=== PATIENT | female | born 1965 | race Caucasian/White ===

== ENCOUNTER 2016-07-05 00:44 | Emergency (ER) | payer SELFPAY ==
[~2016-07-05] VITALS: Ht 162.6 cm; Wt 51.5 kg
[~2016-07-05 00:44] MED LIST: IBUP-1542 PO; OFLO5DRO46 LEFT EYE
[2016-07-05 01:00] VITALS: Ht 162.6 cm; Wt 51.5 kg
== END 2016-07-05 02:35 | disposition left against medical advice (07) ==
LOC: FTE 00:44
DX: Z53.21 Procedure and treatment not carried out due to patient leaving prior to being seen by health care provider (principal)

== ENCOUNTER 2016-12-25 01:44 | Emergency (ER) | payer SELFPAY ==
[~2016-12-25] VITALS: Ht 152.4 cm; Wt 53.0 kg
[2016-12-25 01:53] VITALS: Ht 152.4 cm; Wt 53.0 kg
[2016-12-25] MEDS ORDERED: SODIUM CHLORIDE 0.9% 1L BAG IV* STA (02:34)
[2016-12-25] MEDS ORDERED: ACETAMINOPHEN 325 MG TAB PO STA (02:34)
[2016-12-25] MEDS ORDERED: CEFTRIAXONE 1 GM/50 ML (PMX) 50 ML IVPB STA (02:34)
[2016-12-25 02:54] LABS: HEMATOCRIT 36.9 % (37.0-47.0); HEMOGLOBIN 12.5 g/dl (12.0-16.0); MEAN CORPUSCULAR HEMOGLOBIN 30.6 pg (29.0-33.0); MEAN CORPUSCULAR HGB CONC 33.9 g/dl (32.0-37.0); MEAN CORPUSCULAR VOLUME 90.2 fl (82.0-101.0); MEAN PLATELET VOLUME 10.1 fl (7.4-10.4); PLATELET COUNT 278 10^3/UL (140-415); RED BLOOD COUNT 4.09 10^6/ul (4.20-5.40); RED CELL DISTRIBUTION WIDTH 12.7 % (11.5-14.5); WHITE BLOOD COUNT 4.5 10^3/ul (4.8-10.8)
[2016-12-25 02:58] LABS: POSITIVE DIFF @See below
--- NOTE | 2016-12-25 03:08 | RADRPT ---
PROCEDURE: XR Chest. CLINICAL INDICATION: Sepsis TECHNIQUE: Portable single view of the chest COMPARISON: None. FINDINGS: The heart size is top normal. No acute infiltrate, pleural effusion, or overt congestive heart fail ure is seen. Small probable calcified left lung base granulomas. Old right rib fracture. Slight p robable bibasilar scarring. IMPRESSION: Probable prior granulomatous disease. No definite acute disease. RPTAT: HLBE Raquel Taveras, Physician Date Time Electronically viewed and signed by Raquel Taveras, Physician on 12/25/2016 03:08 LE/
[2016-12-25 03:16] LABS: ALANINE AMINOTRANSFERASE 138 IU/L (13-69); ALBUMIN 3.9 g/dl (3.3-4.9); ALBUMIN/GLOBULIN RATIO 1.18; ALKALINE PHOSPHATASE 209 IU/L (42-121); ANION GAP 17 (8-16); ASPARTATE AMINO TRANSFERASE 83 IU/L (15-46); BILIRUBIN,INDIRECT 0.1 mg/dl (0-1.1); BILIRUBIN,TOTAL 0.1 mg/dl (0.2-1.3); BLOOD UREA NITROGEN 14 mg/dl (7-20); CALCIUM 9.3 mg/dl (8.4-10.2); CARBON DIOXIDE 31 mmol/L (21-31); CHLORIDE 100 mmol/L (97-110); CREATININE 0.76 mg/dl (0.44-1.00); GLUCOSE 104 mg/dl (70-220); POTASSIUM 4.1 mmol/L (3.5-5.1); SODIUM 144 mmol/L (135-144); TOTAL PROTEIN 7.2 g/dl (6.1-8.1)
[2016-12-25 03:34] LABS: INR 1.02; PARTIAL THROMBOPLASTIN TIME 36.5 Sec (25.0-35.0); PROTIME 13.4 Sec (12.2-14.2)
[2016-12-25 03:47] LABS: TROPONIN-I < 0.012 ng/ml (0.00-0.12)
[2016-12-25 03:51] LABS: ADD UMIC YES; UR ASCORBIC ACID NEGATIVE (NEGATIVE); UR BILIRUBIN (Dip) NEGATIVE (NEGATIVE); UR BLOOD (Dip) NEGATIVE (NEGATIVE); UR CLARITY SLIGHTLY CLOUDY (CLEAR); UR COLOR YELLOW (YELLOW); UR GLUCOSE (Dip) NEGATIVE (NEGATIVE); UR KETONES (Dip) NEGATIVE (NEGATIVE); UR LEUKOCYTE ESTERASE (Dip) NEGATIVE Leu/ul (NEGATIVE); UR MUCUS FEW /HPF (NONE SEEN); UR NITRITE (Dip) NEGATIVE (NEGATIVE); UR RBC 1 /HPF (0-5); UR SPECIFIC GRAVITY (Dip) 1.024 (1.003-1.030); UR TOTAL PROTEIN (Dip) 1+ mg/dl (NEGATIVE); UR UROBILINOGEN (Dip) 1+ mg/dL (NEGATIVE)
[2016-12-25 04:20] LABS: EOSINOPHILS % (M) 5 % (0-7); GIANT THROMBO% (M) 6 % (0-0); MONOCYTES % (M) 10 % (0-11); PLATELET ESTIMATE NORMAL
--- NOTE | 2016-12-25 04:59 | RADRPT ---
PROCEDURE: CT Abdomen and pelvis without contrast. CLINICAL INDICATION: Abdominal pain. TECHNIQUE: CT scan of the abdomen and pelvis was performed on a multi-detector high-resolution CT scanner. Contiguous axial images were obtained from the lung bases to the ischial tuberosities wit hout intravenous contrast. Coronal and sagittal reformatted images were also obtained. Images were reviewed on the PACS workstation. One or more of the following dose reduction techniques were used: - Automated exposure control. - Adjustment of the mA and/or kV according to patient size. - Use of iterative reconstruction technique. Exam CTD/vol = 5.64 mGy. Total exam DLP = 292.90 mGy-cm. COMPARISON: None. FINDINGS: Evaluation of the lung bases demonstrates mild bibasilar atelectasis and trace left pleural effusion . There is a calcified granuloma within the left lower lobe. There is a small pericardial effusion . Abdomen: The liver is increased in size. There is no focal mass or dilatation of the biliary tree. The gallbladder is not distended. The spleen, pancreas and bilateral adrenal glands are within no rmal limits. Bilateral kidneys are normal in size with no contour deforming mass identified. There is no radiopaque renal or ureteral calculus identified. There is no hydronephrosis or hydroureter. There is no retroperitoneal adenopathy. The abdominal aorta is of normal caliber. There is a small umbilical hernia containing fat. There is no bowel obstruction or free air. A nor mal appendix is identified. There are scattered colonic diverticuli without evidence of diverticuli tis. There is no ascites. Pelvis: The bladder is unremarkable. The uterus is absent. There is a large left inguinal hernia measuring 2.4 x 1.7 cm. There is no significant pelvic free fluid. Evaluation of the osseous structures demonstrates no suspicious lytic or blastic lesion. IMPRESSION: Scattered colonic diverticuli without evidence of diverticulitis. Mild hepatomegaly. Mild bibasilar atelectasis and trace left pleural effusion. Small pericardial effusion. Small umbilical hernia containing fat. Enlarged left inguinal lymph node measuring 2.4 x 1.7 cm. Otherwise no acute abnormality identified within the abdomen and pelvis. .Celestino Alonzo MD, Date Time Electronically viewed and signed by .Celestino Alonzo MD, MD on 12/25/2016 04:59 .T/
[2016-12-25] MEDS ORDERED: ACET325T33 PO (05:06)
[2016-12-25] MEDS ORDERED: IBUP-1542 PO (05:06)
--- NOTE | 2016-12-25 05:08 | ERD ---
ER Documentation Chief Complaint Date/Time DATE: 12/25/16 TIME: 05:07 Chief Complaint nonradiating chest sharp pain,bilat pelvic pain,fever HPI Patient is a 51-year-old female with hypertension who presents with chest pain. She has had chest pain and fevers for the past few days. She now has lymph nodes in her groin which are inflamed. She denies cough. She denies urinary symptoms. Upon review of old medical records this is the patient's third visit to the ER since 2016. She does not know the name of her primary doctor. ROS All systems reviewed and are negative except as per history of present illness. Medications Home Meds Active Scripts Acetaminophen* (Tylenol*) 325 Mg Tablet, 2 TAB PO Q8 Y for PAIN AND OR ELEVATED TEMP, #20 TAB Prov:ELAINE LUI MD 12/25/16 Ibuprofen* (Motrin*) 600 Mg Tab, 600 MG PO Q8, #30 TAB Prov:ELAINE LUI MD 12/25/16 Ibuprofen* (Ibuprofen*) 600 Mg Tablet, 600 MG PO Q6, #14 TAB Prov:MANJIT LOTT MD 02/15/16 Ofloxacin* (Ocuflox*) 0.3%-5 Ml Ophth Drops, 1 DROP LEFT EYE QID for 7 Days, BOTTLE Prov:MANJIT LOTT MD 02/15/16 Allergies Allergies: Coded Allergies: No Known Allergy (Unverified , 02/15/16) PMhx/Soc History of Surgery: Yes (partial hysterectomy, c section) Hx Alcohol Use: No Hx Substance Use: No Hx Tobacco Use: No Smoking Status: Never smoker FmHx Family History: No diabetes Physical Exam Vitals Vital Signs Date Time Temp Pulse Resp B/P Pulse Ox O2 Delivery O2 Flow Rate FiO2 12/25/16 04:00 95 18 118/80 94 Room Air 12/25/16 03:00 93 17 112/88 95 Room Air 12/25/16 01:53 100.8 104 18 150/72 98 Physical Exam Const: No acute distress Head: Atraumatic Eyes: Normal Conjunctiva ENT: Normal External Ears, Nose and Mouth. Neck: Full range of motion..~ No meningismus. Resp: Clear to auscultation bilaterally Cardio: Regular rate and rhythm, no murmurs Abd: Soft, non tender, non distended. Normal bowel sounds, left inguinal lymph node inflammation Skin: No petechiae or rashes Back: No midline or flank tenderness Ext: No cyanosis, or edema Neur: Awake and alert Psych: Normal Mood and Affect Result Diagram: 12/25/16 0245 12/25/16 0245 Results 24 hrs Laboratory Tests Test 12/25/16 02:45 12/25/16 03:10 White Blood Count 4.510^3/ul Red Blood Count 4.0910^6/ul Hemoglobin 12.5g/dl Hematocrit 36.9% Mean Corpuscular Volume 90.2fl Mean Corpuscular Hemoglobin 30.6pg Mean Corpuscular Hemoglobin Concent 33.9g/dl Red Cell Distribution Width 12.7% Platelet Count 19025^3/UL Mean Platelet Volume 10.1fl Neutrophils % % Segmented Neutrophils % (Manual) 65% Lymphocytes % % Lymphocytes % (Manual) 20% Monocytes % % Monocytes % (Manual) 10% Eosinophils % % Eosinophils % (Manual) 5% Basophils % % Nucleated Red Blood Cells % 0.0/100WBC Neutrophils # 10^3/ul Absolute Lymphocytes (Manual) 0.910^3/ul Lymphocytes # 10^3/ul Monocytes # 10^3/ul Absolute Monocytes (Manual) 0.410^3/ul Eosinophils # 10^3/ul Basophils # 10^3/ul Nucleated Red Blood Cells # 10^3/ul Smudge Cells % 2% Thrombocytosis 6% Platelet Estimate NORMAL Prothrombin Time 13.4Sec Prothrombin Time Ratio 1.0 INR International Normalized Ratio 1.02 Activated Partial Thromboplast Time 36.5Sec Sodium Level 144mmol/L Potassium Level 4.1mmol/L Chloride Level 100mmol/L Carbon Dioxide Level 31mmol/L Anion Gap 17 Blood Urea Nitrogen 14mg/dl Creatinine 0.76mg/dl Glucose Level 104mg/dl Lactic Acid Level 1.1mmol/L Calcium Level 9.3mg/dl Total Bilirubin 0.1mg/dl Direct Bilirubin 0.00mg/dl Indirect Bilirubin 0.1mg/dl Aspartate Amino Transf (AST/SGOT) 83IU/L Alanine Aminotransferase (ALT/SGPT) 138IU/L Alkaline Phosphatase 209IU/L Troponin I < 0.012ng/ml Total Protein 7.2g/dl Albumin 3.9g/dl Globulin 3.30g/dl Albumin/Globulin Ratio 1.18 Urine Color YELLOW Urine Clarity SLIGHTLY CLOUDY Urine pH 6.0 Urine Specific [place] 1.024 Urine Ketones NEGATIVEmg/dL Urine Nitrite NEGATIVEmg/dL Urine Bilirubin NEGATIVEmg/dL Urine Urobilinogen 1+mg/dL Urine Leukocyte Esterase NEGATIVELeu/ul Urine Microscopic RBC 1/HPF Urine Microscopic WBC 2/HPF Urine Mucus FEW/HPF Urine Hemoglobin NEGATIVEmg/dL Urine Glucose NEGATIVEmg/dL Urine Total Protein 1+mg/dl Current Medications Medications (Trade) Dose Ordered Sig/Eleno Route PRN Reason Start Time Stop Time Status Last Admin Dose Admin Sodium Chloride (NS) 1,640 ml BOLUS OVER 2 HOURS STAT IV* 12/25/16 02:34 12/25/16 02:37 DC 12/25/16 03:00 Acetaminophen 650 mg 650 mg ONCE STAT PO 12/25/16 02:34 12/25/16 02:38 DC 12/25/16 02:59 Ceftriaxone Sodium (Rocephin) 50 ml @ 100 mls/hr ONCE STAT IVPB 12/25/16 02:34 12/25/16 03:03 DC 12/25/16 03:01 Procedures/MDM EKG read by me: Rate/Rhythm: Regular rate and rhythm at a rate of 91 Intervals: Normal Impression: No evidence of ischemia or arrhythmia Chest x-ray shows no pneumonia or pneumothorax per radiology. CT abdomen pelvis shows no acute surgical process per radiology. Smoking Cessation Therapy: Pt. was lectured for greater than 3 minutes on the health risks of continued smoking and the benefits of cessation. Patient is a 51-year-old female with hypertension who presents with chest pain and fever. She had a full septic workup which was basically normal. There was no sign of pneumonia or cystitis. There was no sign of surgical process on her CT scan of the abdomen and pelvis. She feels better after treatment with Tylenol. The patient will be discharged home with prescription for Tylenol and Motrin. I doubt acute coronary syndrome, pneumonia, pneumothorax, pulmonary embolism, or aortic dissection. I doubt sepsis or other serious bacterial infection. I would not give her antibiotics at this time as I do believe this is likely a viral illness. However the patient will need close follow-up with a primary doctor within 24-48 hours and could return if symptoms worsen. Departure Diagnosis: Primary Impression: Chest pain Chest pain type: unspecified Qualified Code: R07.9 - Chest pain, unspecified type Additional Impression: Fever Fever type: unspecified Qualified Code: R50.9 - Fever, unspecified fever cause Condition: Fair Patient Instructions: Chest Pain, Uncertain Cause Referrals: Your doctor Additional Instructions: Call your primary care doctor TOMORROW for an appointment during the next 1-2 days.See the doctor sooner or return here if your condition worsens before your appointment time. ELAINE LUI MD Dec 25, 2016 05:08
[2016-12-25 05:36] VITALS: BP 116/75; PULSE 85; RESP 18; TEMP 98.6
== END 2016-12-25 05:37 | disposition home or self-care (01) ==
LOC: E/R 01:44
DX: R07.9 Chest pain, unspecified (principal); R50.9 Fever, unspecified; I10 Essential (primary) hypertension
CPT/HCPCS: 36415; 71010; 74176; 80053; 81001; 83605; 84484; 85025; 85610; 85730; 87040; 87086; 93005; 96374; 99285; J0696; J7030

== ENCOUNTER 2017-04-01 01:48 | Inpatient (IN) | payer MEDICAID ==
[~2017-04-01] VITALS: Ht 152.4 cm; Wt 52.0 kg
[2017-04-01] VITALS (8 sets, daily range): BP systolic 116–164; BP diastolic 65–91; PULSE 95–105; RESP 18–19; TEMP 99.7; Ht 152.4 cm; Wt 52.0 kg
[~2017-04-01 01:48] MED LIST changes: +ACET325T33 PO
--- NOTE | 2017-04-01 02:58 | RADRPT ---
PROCEDURE: XR Chest. CLINICAL INDICATION: Chest pain. TECHNIQUE: Single portable view of the chest was obtained . COMPARISON: None. FINDINGS: Cardiac size is identified. Symmetric smooth bordered nodular densities overlie the left fifth sixth anterior intercostal space and left anterior sixth rib and likely represent prominent breast nipple shadows . Mild degenerative changes of the bilateral shoulder joints. IMPRESSION: 1. No acute pulmonary disease. 2. Magnified cardiac size. 3. Symmetric smooth bordered nodular densities which overlie the bilateral lower lobes probably rep resenting prominent breast nipple shadows. RPTAT: HRSR Physician Bettie Date Time Electronically viewed and signed by Physician Bettie on 04/01/2017 02:58 RR/
[2017-04-01] MEDS ORDERED: IOHEXOL 100 ML ONE (04:42)
[2017-04-01] MEDS ORDERED: SOD CHLORIDE 0.9% 100 ML ONE ×2 (04:42→17:56)
--- NOTE | 2017-04-01 05:11 | RADRPT ---
PROCEDURE: CT angiogram of the chest with contrast. CLINICAL INDICATION: Chest pain. TECHNIQUE: CT angiogram of the chest was obtained using a multi-detector high-resolution CT. Con tiguous axial images were obtained during the dynamic injection of 80 cc of Omnipaque 350 intravenou s contrast. Coronal and sagittal reformatted images were obtained. 3-D reformatted images were als o obtained. Images were reviewed on a PACS workstation. One or more of the following dose reduction techniques were used: - Automated exposure control. - Adjustment of the mA and/or kV according to patient size. - Use of iterative reconstruction technique. Exam CTD/vol = 4.61 mGy. Total exam DLP = 200.09 mGy-cm. COMPARISON: None. FINDINGS: There are filling defects within the lobar, segmental and subsegmental pulmonary arteries of the lef t upper lobe. There are filling defects within the lobar to segmental pulmonary is of the right uppe r lobe. The heart is normal in size. There is a small pericardial effusion. The aorta is of puma l course and caliber without evidence of aneurysm or dissection. There is no evidence of chest wall mass. The visualized thyroid is unremarkable. There are no enla rged axillary lymph nodes. There are no enlarged mediastinal or hilar lymph nodes by CT criteria. There is mild bibasilar atelectasis. There are mild ground-glass opacities within the anterior left upper lobe. There is no parenchymal nodule or consolidation. There is no pleural effusion. The claudio tral tracheobronchial tree is within normal limits. Limited evaluation of the upper abdomen demonstrates a structure measuring 2.4 x 1.6 cm within the l eft upper abdomen posterior to the stomach.. IMPRESSION: Bilateral upper lobe pulmonary emboli. There are ground-glass opacities within the anterior left upp er lobe which could suggest pulmonary infarction. Small pericardial effusion. Mild bibasilar atelectasis. Left upper abdominal 2.4 x 1.6 cm structure could represent an adrenal adenoma, unchanged from the C T abdomen and pelvis of 12/25/2016. A call report was made to Dr. Gerardo at 05:10 a.m. .Celestino Alonzo MD, Date Time Electronically viewed and signed by .Celestino Alonzo MD, on 04/01/2017 05:11 .T/
[2017-04-01] MEDS ORDERED: ENOXAPARIN 60 MG/0.6 ML SYG SC STA (05:24)
[2017-04-01] MEDS ORDERED: ACETAMINOPHEN 325 MG TAB PO PRN (06:00)
[2017-04-01] MEDS ORDERED: ONDANSETRON 4 MG INJ IV PRN (06:00)
--- NOTE | 2017-04-01 06:27 | ERD ---
ER Documentation Chief Complaint Chief Complaint chest pain x 2 days HPI 51-year-old with no significant past medical history presenting with chest pain that is worsened over the past 2 days. She has been feeling some pain over the past week. Now she has associated shortness of breath at rest. No diaphoresis , nausea, vomiting, fever, chills. She does complain of lymph node swelling and pain in her bilateral groin area for the past several months. She denies any associated abdominal pain, dysuria, vaginal discharge, weight loss, or night sweats. She denies any recent surgeries or immobilization. No history of blood clots or cardiac disease. ROS All systems reviewed and are negative except as per history of present illness. Medications Home Meds Active Scripts Acetaminophen* (Tylenol*) 325 Mg Tablet, 2 TAB PO Q8 Y for PAIN AND OR ELEVATED TEMP, #20 TAB Prov:ELAINE LUI MD 12/25/16 Ibuprofen* (Motrin*) 600 Mg Tab, 600 MG PO Q8, #30 TAB Prov:ELAINE LUI MD 12/25/16 Ibuprofen* (Ibuprofen*) 600 Mg Tablet, 600 MG PO Q6, #14 TAB Prov:MANJIT LOTT MD 02/15/16 Ofloxacin* (Ocuflox*) 0.3%-5 Ml Ophth Drops, 1 DROP LEFT EYE QID for 7 Days, BOTTLE Prov:MANJIT LOTT MD 02/15/16 Allergies Allergies: Coded Allergies: No Known Allergy (Unverified , 04/01/17) PMhx/Soc History of Surgery: Yes (partial hysterectomy, c section) Anesthesia Reaction: No Hx Neurological Disorder: No Hx Respiratory Disorders: No Hx Cardiac Disorders: No Hx Psychiatric Problems: No Hx Miscellaneous Medical Probl: No Hx Alcohol Use: Yes (WINE ) Hx Substance Use: No Hx Tobacco Use: Yes (5 CIGS/DAY ) Smoking Status: Current every day smoker FmHx Family History: coronary disease, other (Son had Wilms tumor and blood clots) Physical Exam Vitals Vital Signs Date Time Temp Pulse Resp B/P Pulse Ox O2 Delivery O2 Flow Rate FiO2 04/01/17 06:04 99.7 93 14 166/96 96 Room Air 04/01/17 05:01 95 12 174/101 97 Room Air 04/01/17 04:04 100.2 103 15 170/98 97 Room Air 04/01/17 02:15 111 12 198/106 98 Room Air 04/01/17 01:53 98.4 118 20 216/98 98 Physical Exam Const: Well-appearing, no apparent distress Head: Atraumatic Eyes: Normal Conjunctiva ENT: Normal External Ears, Nose and Mouth. Neck: Full range of motion..~ No meningismus. Resp: Clear to auscultation bilaterally Cardio: Tachycardic with regular rhythm, no murmurs. 2+ distal pulses in all 4 extremities Abd: Soft, non tender, non distended. Normal bowel sounds. Bilateral groin area with shotty lymphadenopathy. No rashes or erythema Skin: No petechiae or rashes Back: No midline or flank tenderness Ext: No cyanosis, or edema. No calf tenderness Neur: Awake and alert Psych: Somewhat anxious but pleasant Result Diagram: 04/01/1722904/01/17229 Results 24 hrs Laboratory Tests Test 04/01/17 02:30 White Blood Count 9.710^3/ul Red Blood Count 4.3710^6/ul Hemoglobin 12.7g/dl Hematocrit 37.3% Mean Corpuscular Volume 85.4fl Mean Corpuscular Hemoglobin 29.1pg Mean Corpuscular Hemoglobin Concent 34.0g/dl Red Cell Distribution Width 13.2% Platelet Count 55916^3/UL Mean Platelet Volume 10.1fl Neutrophils % 78.2% Lymphocytes % 11.1% Monocytes % 8.8% Eosinophils % 1.2% Basophils % 0.5% Nucleated Red Blood Cells % 0.0/100WBC Neutrophils # 7.610^3/ul Lymphocytes # 1.110^3/ul Monocytes # 0.910^3/ul Eosinophils # 0.110^3/ul Basophils # 0.110^3/ul Nucleated Red Blood Cells # 0.010^3/ul Prothrombin Time 13.0Sec Prothrombin Time Ratio 1.0 INR International Normalized Ratio 0.98 Activated Partial Thromboplast Time 35.4Sec D-Dimer 1590.32ng/ml D-Dimer Comment Sodium Level 142mmol/L Potassium Level 3.7mmol/L Chloride Level 101mmol/L Carbon Dioxide Level 28mmol/L Anion Gap 17 Blood Urea Nitrogen 10mg/dl Creatinine 0.77mg/dl Glucose Level 116mg/dl Calcium Level 9.1mg/dl Troponin I < 0.012ng/ml Current Medications Medications (Trade) Dose Ordered Sig/Eleno Route PRN Reason Start Time Stop Time Status Last Admin Dose Admin IV Flush 10 ml 10 ml STK-MED ONCE .ROUTE 04/01/17 04:42 04/01/17 04:43 DC 04/01/17 04:49 Sodium Chloride 100 ml @ ud STK-MED ONCE .ROUTE 04/01/17 04:42 04/01/17 04:43 DC 04/01/17 04:49 Iohexol (Omnipaque) 100 ml @ ud STK-MED ONCE .ROUTE 04/01/17 04:42 04/01/17 04:43 DC 04/01/17 04:49 Enoxaparin Sodium (Lovenox) 60 mg ONCE STAT SC 04/01/17 05:24 04/01/17 05:25 DC 04/01/17 06:03 Ondansetron HCl (Zofran Inj) 4 mg ER BRIDGE PRN IV NAUSEA AND/OR VOMITING 04/01/17 06:00 04/02/17 05:59 Acetaminophen (Tylenol Tab) 650 mg ER BRIDGE PRN PO MILD PAIN/FEVER 04/01/17 06:00 04/02/17 05:59 Procedures/MDM EKG: Rate/Rhythm: Sinus tachycardia at 111 bpm QRS, ST, T-waves: No changes consistent w/ acute ischemia Impression: No evidence of ischemia, sinus tachycardia Chest x-ray CTPA: Labs CBC: no anemia or evidence of infection BMP: No evidence of electrolyte abnormality, renal failure, hypoglycemia Troponin within normal limits UA: pending Urine GC/Chlamydia pending MDM Patient is presenting with chest pain and shortness of breath. Vitals were notable for uncontrolled hypertension and tachycardia. There is no evidence of hypoxia. Given her tachycardia, she is PERC positive, but low risk with Wells criteria. D-dimer was ordered and was elevated. Cardiac workup was also initiated. Initial troponin was normal. EKG did not show any ischemic changes. CTPA was ordered due to elevated d-dimer, showing bilateral PEs. Etiologies of her PEs is unknown. Given her chronic lymphadenopathy, malignancy is on the differential. Lovenox was started in the ED. Patient was updated on her results and the plan. I will admit her for further diagnostic workups and stabilization. At this time she is not stable for discharge. Critical Care Time: 35 minutes Treatments/Evaluations: Close monitoring and treatment of unstable vital signs, cardiorespiratory, and neurologic status, while maintaining tight balance of fluid, respiratory, and cardiac interventions. This time includes discussing the case with the patient and the patients family. This time does not include all procedures stated elsewhere in this record. This time also includes reviewing old records, labs and radiological studies. This time includes examining and re-examining the patient. Additionally, this time also includes arranging care with admitting and consulting physicians. Accepting Care Team: Current data and ongoing care discussed. Time: Time of admission Primary Provider: Derek Outstanding Data: Urinalysis, urine GC and chlamydia Departure Diagnosis: Primary Impression: Bilateral pulmonary embolism Additional Impression: Inguinal lymphadenopathy Condition: Serious KIRA FOSTER MD Apr 01, 2017 06:27
[2017-04-01] MEDS ORDERED: LORAZEPAM 1 MG TAB PO ONE (07:30)
--- NOTE | 2017-04-01 12:57 | HP ---
Date/Time of Note Date/Time of Note DATE: 04/01/17 TIME: 12:46 Assessment/Plan VTE Prophylaxis VTE Prophylaxis Intervention: LMWH Lines/Catheters IV C[facility]ter [facility] Saline Lock Assessment/Plan Chief Complaint/Hosp Course 51 yo female with weeks of fever of unknown origin, lympadenopathy and found to have acute pulmonary embolism Presentation is concerning fo an undiagnosed malignancy vs unclear infectious process vs less likely rheumatic process - CT A/P w contrast to evaluate for malignancy - Fever workup with blood cultures, urine culture. Fever possible from PE but need to rule out other pathology - Would biopsy inguinal node - Will send SPEP - Therapeutic lovenox for PE - Start amlodipine 5 for hypertension Problems: HPI/ROS Admit Date/Time Admit Date/Time Apr 01, 2017 at 05:35 Hx of Present Illness 51 yo female without pmh who presents with with fevers and CP/dyspnea. Patient has had fevers to 103 over past few weeks. Minimal localizing symptoms but does have headache with fever. Has been taking lots of advil with relief. Then over past few days has developed chest pain/pressure and mild dyspnea for which she came to ED. Also reports new onset of mildly tender lymphadenopathy in her groin as well as point tenderness in her left inferior rib cage. No leg symptoms. Not on estrogens. No immobility No weight loss. + night sweats/fevers No cough, no abdomominal pain or diarrhea, no urinary symptoms Of note, presentied with simliary compliants in November, though self resolved before reapparing PMH/Family/Social Past Medical History Medical History: no pertinent history Past Surgical History Past Surgical Hx: no surgical history Family History Significant Family History: no pertinent family hx Social History Alcohol Use: none Smoking Status: Current every day smoker Drug Use: none Exam/Review of Systems Vital Signs Vitals Vital Signs Date Time Temp Pulse Resp B/P Pulse Ox O2 Delivery O2 Flow Rate FiO2 04/01/17 12:22 101 04/01/17 11:33 99.4 18 141/66 97 04/01/17 09:30 Room Air Exam Exam Shoddy lymphadenopathy in L inguinal region WEll appearing, no distress RRR No splenomegaly Soft belly, nontender Constitutional: alert, oriented, well developed Psych: nl mood/affect, no complaints Head: atraumatic, normocephalic Eyes: EOMI, PERRL, nl conjunctiva, nl lids, nl sclera ENMT: nl external ears & nose, nl lips & teeth, nl nasal mucosa & septum Neck: non-tender, supple Respiratory: clear to auscultation, normal air movement Cardiovascular: nl pulses, regular rate and rhythm Gastrointestinal: nl liver, spleen, non-tender, soft Musculoskeletal: nl extremities to inspection Extremities: normal pulses Neurological: [employer] II-XII intact, nl mental status, nl speech, nl strength Skin: nl turgor, No rash or lesions Lymph: nl lymph nodes Labs Result Diagram: 04/01/1722904/01/17229 Medications Medications Current Medications Enoxaparin Sodium (Lovenox) 50 mg Q12 SC ; Start 04/01/17 at 21:00; Status UNV FRANKLIN ESQUIVEL MD Apr 01, 2017 12:57
[2017-04-01] MEDS ORDERED: NACL 0.9% 3 ML SYG IV SCH (13:00)
[2017-04-01] MEDS ORDERED: IBUPROFEN 600 MG TAB PO PRN (13:00)
[2017-04-01] MEDS: ACETAMINOPHEN 325 MG TAB PO PRN ×2 (13:00→23:42)
[2017-04-01] MEDS ORDERED: BARIUM SULF 2% 450 ML BTL (BERRY SMOOTHIE) PO SCH (14:00)
[2017-04-01] MEDS ORDERED: IOHEXOL 300MG/ML 150 ML BTL ONE (17:56)
--- NOTE | 2017-04-01 19:56 | RADRPT ---
PROCEDURE: CT Abdomen and Pelvis with contrast. CLINICAL INDICATION: Abdomen and pelvis pain. TECHNIQUE: CT scan of the abdomen and pelvis with contrast was performed. The patient was scanned following the uncomplicated intravenous administration of 100 cc of Omnipaque-300. Coronal and sag ittal reformatted images were obtained from the axial source images. Images were reviewed on a high- resolution PACS workstation. Total exam DLP is 208.35 mGy-cm. CTDIvol is 4.23 mGy. One or more of the following dose reduction techniques were used: Automated exposure control, adjustment of the mA and/or kV according to patient size, use of iterative reconstruction technique. COMPARISON: Noncontrast CT scan of the abdomen and pelvis dated 12/25/2016. FINDINGS: The lung bases are normal. There is no pleural effusion. The liver is enlarged and normal in attenuation. There is no focal hepatic lesion. The gallbladder and bile ducts are normal. The spleen is normal in size. There is no focal splenic lesion. The right adrenal is normal. There is a low attenuation nodule superiorly in the left adrenal measur ing 1.6 x 1.3 cm, unchanged. The pancreas is unremarkable with no mass or evidence of pancreatitis. Both kidneys demonstrate normal contrast enhancement. There is no renal mass or hydronephrosis. The abdominal aorta is not dilated. There is no retroperitoneal lymphadenopathy or mass. There is no pelvic lymphadenopathy or mass. The bladder and distal ureters are normal. The periappendiceal region is unremarkable with no evidence of appendicitis. The bowel and mesentery are normal. There is no free fluid or free gas. There are degenerative changes of the lower lumbar spine The osseous structures are otherwise unrema rkable with no fracture or lytic lesion. IMPRESSION: 1. Hepatomegaly. 2. Low attenuation left adrenal nodule, unchanged, probably benign. Follow-up in 6 months advised. If there is more immediate concerned correlation with MRI should be performed. 3. Degenerative changes of the lower lumbar spine. 4. Otherwise unremarkable CT scan of the abdomen and pelvis. RPTAT: QQ .Zachery Waters MD, MD Date Time Electronically viewed and signed by .Zachery Waters MD, MD on 04/01/2017 19:56 .R/
[2017-04-01] MEDS: ENOXAPARIN 60 MG/0.6 ML SYG SC SCH (20:51)
[2017-04-02] VITALS (13 sets, daily range): BP systolic 103–187; BP diastolic 59–100; PULSE 69–110; RESP 18–22
[2017-04-02] MEDS: OXYCODONE/ACETAMINOPHEN (5/325) TAB PO PRN ×2 (00:37→08:26)
--- NOTE | 2017-04-02 01:31 | RADRPT ---
PROCEDURE: XR Chest. CLINICAL INDICATION: Fever TECHNIQUE: AP Portable chest. COMPARISON: No pertinent prior examinations were submitted for comparison. FINDINGS: There is mild cardiomegaly. The lungs are clear. The osseous structures are unremarkable. IMPRESSION: No acute findings. RPTAT: HIKT .Xavi Vila MD, Date Time Electronically viewed and signed by .Xavi Vila MD, on 04/02/2017 01:31 .T/
[2017-04-02] MEDS: ENOXAPARIN 60 MG/0.6 ML SYG SC SCH ×2 (08:22→21:56)
--- NOTE | 2017-04-02 15:57 | RADRPT ---
PROCEDURE: US Lower extremity Venous. CLINICAL INDICATION: Bilateral lower extremity edema TECHNIQUE: Multiple sonographic images of the bilateral lower extremity deep venous system was obt ained utilizing grayscale, color-flow, compressive sonography and doppler imaging with augmentation. The images were reviewed on a PACS workstation. COMPARISON: None. FINDINGS: There is normal compressibility and flow within the bilateral common femoral, femoral , posterior ti bial and popliteal veins. RPTAT: AA IMPRESSION: No sonographic evidence for deep venous thrombosis. .Vadim Cortez MD, MD Date Time Electronically viewed and signed by .Vadim Cortez MD, on 04/02/2017 15:57 .S/
[2017-04-03] VITALS (9 sets, daily range): BP systolic 97–135; BP diastolic 58–79; PULSE 68–100; RESP 20
[2017-04-03] MEDS: OXYCODONE/ACETAMINOPHEN (5/325) TAB PO PRN ×2 (05:25→13:45)
[2017-04-03] MEDS: ACETAMINOPHEN 325 MG TAB PO PRN (05:26)
[2017-04-03] MEDS: ENOXAPARIN 60 MG/0.6 ML SYG SC SCH (09:44)
[2017-04-03] MEDS ORDERED: RIVA20TA PO (14:16)
[2017-04-03] MEDS ORDERED: RIVA15TA PO (14:16)
[2017-04-03] MEDS ORDERED: CIPR-193 PO (14:16)
--- NOTE | 2017-04-03 14:17 | PDOCDIS ---
Discharge Instructions CONDITION Patient Condition: Good HOME CARE INSTRUCTIONS: Diet Instructions: Regular ACTIVITY: Activity Restrictions: No Restrictions FOLLOW UP/APPOINTMENTS Follow-up Plan F/U WITH YOUR PCP IN 1-2 WEEKS LANCE NANCE Apr 03, 2017 14:17
--- NOTE | 2017-04-03 17:54 | DS ---
Date/Time of Note Date/Time of Note DATE: 04/03/17 TIME: 17:47 Discharge Summary Admission/Discharge Info Admit Date/Time Apr 01, 2017 at 05:35 Discharge Date/Time April 03, 2017 Discharge Diagnosis 1. Acute bilateral lobe pulmonary emboli No evidence of DVT in the lower extremity DC with Xarelto No evidence of malignancy on CT chest abdomen pelvis 2. Adrenal nodule- unchanged, probably benign per radiology report Monitor Patient is asymptomatic 3. UTI DC with Cipro Patient Condition: Good Hospital Course Patient is a 51 yo female with no medical history, patient presents with fevers and shortness of breath. Patient was found to have bilateral PE and UTI. Patient was started on Lovenox and urine culture showed E. coli. CT chest abdomen pelvis showed only the bilateral PE, there is no evidence of malignancy. An adrenal adenoma was noted and was stable compared to prior imaging was felt to be benign per radiologist. Patient was seen by pulmonology and ultrasound of the lower extremity show no evidence of DVT. On the of discharge patient had no acute complaints, she had no shortness of breath, her vitals labs and physical exam are stable and questions are answered. Home Meds Active Scripts Rivaroxaban* (Xarelto*) 20 Mg Tablet, 20 MG PO WITH DINNER for 90 Days, TAB Prov:LANCE NANCE 04/03/17 Rivaroxaban* (Xarelto*) 15 Mg Tablet, 15 MG PO BID for 21 Days, TAB Prov:LANCE NANCE 04/03/17 Ciprofloxacin Hcl* (Ciprofloxacin Hcl*) 250 Mg Tablet, 250 MG PO BID for 3 Days , TAB Prov:LANCE NANCE 04/03/17 Acetaminophen* (Tylenol*) 325 Mg Tablet, 2 TAB PO Q8 Y for PAIN AND OR ELEVATED TEMP, #20 TAB Prov:ELAINE LUI MD 12/25/16 Ibuprofen* (Motrin*) 600 Mg Tab, 600 MG PO Q8, #30 TAB Prov:ELAINE LUI MD 12/25/16 Ibuprofen* (Ibuprofen*) 600 Mg Tablet, 600 MG PO Q6, #14 TAB Prov:MANJIT LOTT MD 02/15/16 Ofloxacin* (Ocuflox*) 0.3%-5 Ml Ophth Drops, 1 DROP LEFT EYE QID for 7 Days, BOTTLE Prov:MANJIT LOTT MD 02/15/16 Follow-up Plan F/U WITH YOUR PCP IN 1-2 WEEKS Primary Care Provider Not On Staff Doctor Time spent on discharge: > 30 minutes LANCE NANCE Apr 03, 2017 17:54
--- NOTE | 2017-04-03 18:22 | PN ---
Date/Time of Note Date/Time of Note DATE: 04/02/17 TIME: 18:20 Assessment/Plan VTE Prophylaxis VTE Prophylaxis Intervention: LMWH Lines/Catheters IV C[facility]ter Type [facility]from [facility] Lock Urinary Cath still in place: No Assessment/Plan Chief Complaint/Hosp Course 1. Acute bilateral lobe pulmonary emboli Ultrasound of lower extremities Continue Lovenox No evidence of malignancy on CT chest abdomen pelvis Pulmonology consultation 2. Adrenal nodule- unchanged, probably benign per radiology report Monitor Patient is asymptomatic Prophylaxis: Lovenox Problems: Subjective 24 Hr Interval Summary Free Text/Dictation Late entry from 04/02/2017 Respiratory: shortness of breath Exam/Review of Systems Vital Signs Vitals Vital Signs Date Time Temp Pulse Resp B/P Pulse Ox O2 Delivery O2 Flow Rate FiO2 04/03/17 16:00 73 04/03/17 15:38 98.0 20 121/67 99 04/01/17 09:30 Room Air Intake and Output 04/02/17 04/02/17 04/03/17 15:00 23:00 07:00 Intake Total 500 ml Balance 500 ml Exam Constitutional: alert, oriented Respiratory: clear to auscultation Cardiovascular: regular rate and rhythm Gastrointestinal: soft, No distended Musculoskeletal: nl extremities to inspection Results Result Diagram: 04/02/1762104/02/17621 Medications Medications Current Medications Enoxaparin Sodium (Lovenox) 50 mg Q12 SC Last administered on 04/03/17 09:44; Admin Dose 50 MG; Start 04/01/17 at 21:00 Acetaminophen (Tylenol Tab) 650 mg Q6H PRN PO PAIN AND OR ELEVATED TEMP Last administered on 04/03/17 05:26; Admin Dose 650 MG; Start 04/01/17 at 13:00 Oxycodone/ Acetaminophen (Percocet (5/ 325)) 1 tab Q6H PRN PO MODERATE PAIN LEVEL 4-6 Last administered on 04/03/17 13:45; Admin Dose 1 TAB; Start at 13:00 LANCE NANCE Apr 03, 2017 18:22
== END 2017-04-03 18:45 | disposition home or self-care (01) | DRG 176 ==
LOC: E/R 01:48 → TEL 05:35
PROVIDERS: ADMIT Family Medicine; ATTEND Family Medicine
DX: I26.99 Other pulmonary embolism without acute cor pulmonale (principal); N39.0 Urinary tract infection, site not specified; B96.20 Unspecified Escherichia coli [E. coli] as the cause of diseases classified elsewhere; R59.0 Localized enlarged lymph nodes
CPT/HCPCS: 36415; 71010; 71275; 74177; 80048; 80053; 81001; 81003; 83615; 84155; 84165; 84484; 85025; 85378; 85610; 85730; 86038; 86320; 86703; 87040; 87086; 87591; 93005; 93970; 96372; Q9967

== ENCOUNTER 2017-06-14 05:52 | Emergency (ER) | END 2017-06-14 10:36 | disposition home or self-care (01) ==

== ENCOUNTER 2017-12-23 18:00 | Emergency (ER) | END 2017-12-23 22:00 | disposition home or self-care (01) ==

== ENCOUNTER 2018-02-28 12:50 | Emergency (ER) | END 2018-02-28 14:55 | disposition home or self-care (01) ==